=== PATIENT | male | born 1960 | race Caucasian/White ===

== ENCOUNTER 2020-10-23 14:01 | Emergency (ER) | payer MEDICAID ==
[~2020-10-23] VITALS: Ht 167.6 cm; Wt 73.0 kg
[2020-10-23 14:13] VITALS: BP 127/70
[2020-10-23] MEDS ORDERED: CYCL5TAB MT (16:17)
[2020-10-23] MEDS ORDERED: NAPR-681 PO (16:17)
[2020-10-23] MEDS ORDERED: CEPH500T PO (16:17)
[2020-10-23] MEDS ORDERED: SULF1TAB48 PO (16:17)
== END 2020-10-23 17:00 | disposition home or self-care (01) ==
LOC: ER 17:00
DX: S46.312A Strain of muscle, fascia and tendon of triceps, left arm, initial encounter (principal); Z98.890 Other specified postprocedural states; W57.XXXA Bitten or stung by nonvenomous insect and other nonvenomous arthropods, initial encounter; Y93.89 Activity, other specified; Y92.89 Other specified places as the place of occurrence of the external cause; Y99.8 Other external cause status
CPT/HCPCS: 99283